=== PATIENT | female | born 1955 | race African-American/Black ===

== ENCOUNTER 2017-10-26 15:16 | Emergency (ER) | payer OTHER ==
[~2017-10-26] VITALS: Ht 162.6 cm; Wt 102.5 kg
[2017-10-26 16:18] LABS: HEMATOCRIT 43.2 % (37.0-47.0); HEMOGLOBIN 14.8 G/DL (12.0-16.0); MEAN CORPUSCULAR VOLUME 83 FL (80-99); PLATELET COUNT 173 K/UL (150-450); RED BLOOD COUNT 5.18 M/UL (4.20-5.40); RED CELL DISTRIBUTION WIDTH 12.7 % (11.6-14.8); WHITE BLOOD COUNT 10.3 K/UL (4.8-10.8)
[2017-10-26 16:21] LABS: ANION GAP 11 mmol/L (5-15); BLOOD UREA NITROGEN 18 mg/dL (7-18); CALCIUM 10.3 MG/DL (8.5-10.1); CARBON DIOXIDE 26 MMOL/L (21-32); CHLORIDE 102 MMOL/L (98-107); POTASSIUM 4.7 MMOL/L (3.5-5.1); SODIUM 139 MMOL/L (136-145)
[2017-10-26 16:32] LABS: ALANINE AMINOTRANSFERASE 37 U/L (12-78); ALBUMIN 4.1 G/DL (3.4-5.0); ALBUMIN/GLOBULIN RATIO 0.9 (1.0-2.7); ALKALINE PHOSPHATASE 84 U/L (46-116); ASPARTATE AMINO TRANSFERASE 45 U/L (15-37); BILIRUBIN,TOTAL 1.1 MG/DL (0.2-1.0)
[2017-10-26 16:49] LABS: APPEARANCE,URINE CLEAR; BILIRUBIN, URINE NEGATIVE (NEGATIVE); COLOR,URINE PALE YELLOW; GLUCOSE, URINE (UA) NEGATIVE (NEGATIVE); KETONES,URINE NEGATIVE (NEGATIVE); LEUKOCYTE ESTERASE ,URINE NEGATIVE (NEGATIVE); NITRITE,URINE NEGATIVE (NEGATIVE); PH,URINE 7 (4.5-8.0); PROTEIN,URINE 3+ (NEGATIVE); UROBILINOGEN,URINE NORMAL MG/DL (0.0-1.0)
[2017-10-26 16:50] LABS: BILIRUBIN,DIRECT 0.1 MG/DL (0.0-0.3)
--- NOTE | 2017-10-26 16:53 | Diagnostic Imaging Report ---
EXAM: XR Chest, 1 View CLINICAL HISTORY: ABD PAIN TECHNIQUE: Frontal view of the chest. COMPARISON: No relevant prior studies available. FINDINGS: Lungs: No consolidation. Pleural space: Unremarkable. No pneumothorax. Heart: Cardiomegaly. Mediastinum: Unremarkable. Bones/joints: No acute fracture. IMPRESSION: No consolidation.
[2017-10-26 17:00] VITALS: BP 177/92
[2017-10-26] MEDS ORDERED: ONDANSETRON ODT4 MG BC (17:26)
[2017-10-26] MEDS ORDERED: RANITIDINE HCL150 MG ORAL (17:26)
[2017-10-26] MEDS ORDERED: DICYCLOMINE HCL10 MG PO (17:26)
[2017-10-26] MEDS ORDERED: Pantoprazole Inj IVP ONE (17:30)
[2017-10-26 17:40] VITALS: BP 157/92
--- NOTE | 2017-10-26 18:36 | Emergency Room Report ---
History of Present Illness General Chief Complaint: Chest Pain Source: Patient Present Illness HPI 62-year-old F presents ED complaining of chest pain. States that pain started earlier today while at rest. Burning, 4 out of 10, nonradiating. Patient points to her epigastric region. States she has history of gastritis. Also complaining of diarrhea. Denies any shortness of breath. No other aggravating relieving factors. Denies any other associated symptoms Allergies: Coded Allergies: IBUPROFEN (Verified Allergy, Unknown, 10/26/17) Patient History Past Medical History: HTN, GERD Past Surgical History: none Pertinent Family History: none Social History: Denies: smoking, alcohol use, drug use Now: No Immunizations: UTD Reviewed Nursing Documentation: PMH: Agreed; PSxH: Agreed Nursing Documentation-PMH Hx Cardiac Problems: Yes - enlarged heart Hx Hypertension: Yes Review of Systems All Other Systems: negative except mentioned in HPI Physical Exam Vital Signs Date Time Temp Pulse Resp B/P (MAP) Pulse Ox O2 Delivery O2 Flow Rate FiO2 10/26/17 15:23 98.3 90 18 163/100 96 Room Air 98.2 Sp02 EP Interpretation: reviewed, normal General Appearance: no apparent distress, alert, GCS 15, non-toxic Head: normocephalic, atraumatic Eyes: bilateral eye normal inspection, bilateral eye PERRL ENT: hearing grossly normal, normal pharynx, no angioedema, normal voice Neck: full range of motion, supple/symm/no masses Respiratory: chest non-tender, lungs clear, normal breath sounds, speaking full sentences Cardiovascular #1: regular rate, rhythm, no edema Cardiovascular #2: 2+ carotid (R), 2+ carotid (L), 2+ radial (R), 2+ radial (L) , 2+ dorsalis pedis (R), 2+ dorsalis pedis (L) Gastrointestinal: normal bowel sounds, soft, non-distended, no guarding, no rebound, tenderness - epigastric Rectal: deferred Genitourinary: normal inspection, no CVA tenderness Musculoskeletal: back normal, gait/station normal, normal range of motion, non- tender Neurologic: alert, oriented x3, responsive, motor strength/tone normal, sensory intact, speech normal Psychiatric: judgement/insight normal, memory normal, mood/affect normal, no suicidal/homicidal ideation Reflexes: 3+ bicep (R), 3+ bicep (L), 3+ tricep (R), 3+ tricep (L), 3+ knee (R) , 3+ knee (L) Skin: normal color, no rash, warm/dry, well hydrated Lymphatic: no adenopathy Medical Decision Making Diagnostic Impression: Primary Impression: Epigastric pain ER Course Hospital Course 62-year-old F presents to ED with epigastric pain with vomiting, diarrhea differential diagnosis: gastritis, SBO, cholecystits Clinical course Patient placed on stretcher. On functional architect. After initial history and physical I ordered labs, IV fluids, Zofran and pepcid, ekg, cxr Labs - no leukocytosis, no electrolyte abnormalities, LFTs normal, trop 0.00 EKG - NSR, no acute ischemic changes interpreted by me CXR - no acute process Pain was epigastric. However given patient's age and risk factors I believe a cardiac workup was required. Clinically patient states exam consistent with gastritis. Symptoms improving after Pepcid and Zofran I feel this is a highly complex case requiring extensive working including EKG/ Rhythm strip, Xray/CT/US, Blood/urine lab work, repeat exams while in ED, and administration of strong opiates/narcotics for pain control, admission to hospital or close patient follow up. Diagnosis - epigastric pain Stable and discharged to home with prescriptions for Zantac, zofran. Followup with PMD. Return to ED if symptoms recur or worsen Labs Test 10/26/17 15:55 10/26/17 16:25 White Blood Count 10.3 K/UL (4.8-10.8) Red Blood Count 5.18 M/UL (4.20-5.40) Hemoglobin 14.8 G/DL (12.0-16.0) Hematocrit 43.2 % (37.0-47.0) Mean Corpuscular Volume 83 FL (80-99) Mean Corpuscular Hemoglobin 28.5 PG (27.0-31.0) Mean Corpuscular Hemoglobin Concent 34.2 G/DL (32.0-36.0) Red Cell Distribution Width 12.7 % (11.6-14.8) Platelet Count 173 K/UL (150-450) Mean Platelet Volume 7.8 FL (6.5-10.1) Neutrophils (%) (Auto) % (45.0-75.0) Lymphocytes (%) (Auto) % (20.0-45.0) Monocytes (%) (Auto) % (1.0-10.0) Eosinophils (%) (Auto) % (0.0-3.0) Basophils (%) (Auto) % (0.0-2.0) Differential Total Cells Counted 100 Neutrophils % (Manual) 73 % (45-75) Lymphocytes % (Manual) 17 % (20-45) Monocytes % (Manual) 4 % (1-10) Eosinophils % (Manual) 0 % (0-3) Basophils % (Manual) 1 % (0-2) Band Neutrophils 5 % (0-8) Platelet Estimate Adequate Platelet Morphology Normal Red Blood Cell Morphology Normal Sodium Level 139 MMOL/L (136-145) Potassium Level 4.7 MMOL/L (3.5-5.1) Chloride Level 102 MMOL/L (98-107) Carbon Dioxide Level 26 MMOL/L (21-32) Anion Gap 11 mmol/L (5-15) Blood Urea Nitrogen 18 mg/dL (7-18) Creatinine 1.0 MG/DL (0.55-1.30) Estimat Glomerular Filtration Rate 55.8 mL/min (>60) Glucose Level 137 MG/DL (74-106) Calcium Level 10.3 MG/DL (8.5-10.1) Total Bilirubin 1.1 MG/DL (0.2-1.0) Direct Bilirubin 0.1 MG/DL (0.0-0.3) Aspartate Amino Transf (AST/SGOT) 45 U/L (15-37) Alanine Aminotransferase (ALT/SGPT) 37 U/L (12-78) Alkaline Phosphatase 84 U/L (46-116) Troponin I 0.000 ng/mL (0.000-0.056) Total Protein 8.8 G/DL (6.4-8.2) Albumin 4.1 G/DL (3.4-5.0) Globulin 4.7 g/dL Albumin/Globulin Ratio 0.9 (1.0-2.7) Lipase 84 U/L (73-393) Urine Color Pale yellow Urine Appearance Clear Urine pH 7 (4.5-8.0) Urine Specific [place] 1.010 (1.005-1.035) Urine Protein 3+ (NEGATIVE) Urine Glucose (UA) Negative (NEGATIVE) Urine Ketones Negative (NEGATIVE) Urine Occult Blood 3+ (NEGATIVE) Urine Nitrite Negative (NEGATIVE) Urine Bilirubin Negative (NEGATIVE) Urine Urobilinogen Normal MG/DL (0.0-1.0) Urine Leukocyte Esterase Negative (NEGATIVE) Urine RBC 2-4 /HPF (0 - 2) Urine WBC 0-2 /HPF (0 - 2) Urine Squamous Epithelial Cells Few /LPF (NONE/OCC) Urine Amorphous Sediment Few /LPF (NONE) Urine Bacteria Few /HPF (NONE) EKG Diagnostic Results Rate: normal Rhythm: NSR ST Segments: no acute changes ASA given to the pt in ED: No Rhythm Strip Diag. Results EP Interpretation: yes Rhythm: NSR, no ectopy, other - PVCs Chest X-Ray Diagnostic Results Chest X-Ray Diagnostic Results : Chest X-Ray Ordered: Yes # of Views/Limited/Complete: 1 View Indication: Chest Pain EP Interpretation: Yes Interpretation: no consolidation, no effusion, no pneumothorax, no acute cardiopulmonary disease Impression: No acute disease Electronically Signed by: Electronically signed by Travis Amor MD Last Vital Signs Date Time Temp Pulse Resp B/P (MAP) Pulse Ox O2 Delivery O2 Flow Rate FiO2 10/26/17 17:40 98.1 84 20 157/92 99 Room Air 98.2 Status: improved Disposition: HOME, SELF-CARE Condition: Stable Scripts Ondansetron Odt* (ZOFRAN ODT*) 4 Mg Tab.rapdis 4 MG BC EVERY 6 HOURS PRN for Nausea & Vomiting, #30 TAB 0 Refills Prov: Travis Amor MD 10/26/17 Dicyclomine Hcl* (DICYCLOMINE HCL*) 10 Mg Capsule 10 MG PO QID, #20 CAP Prov: Travis Amor MD 10/26/17 Ranitidine Hcl* (ZANTAC*) 150 Mg Tablet 150 MG ORAL TWICE A DAY, #30 TAB Prov: Travis Amor MD 10/26/17 Patient Instructions: Gastritis, Adult, [id number] Travis Amor MD Oct 26, 2017 18:36
== END 2017-10-26 17:40 | disposition home or self-care (01) ==
LOC: EMR 16:00
DX: R10.13 Epigastric pain (principal); R07.9 Chest pain, unspecified; I10 Essential (primary) hypertension; K21.9 Gastro-esophageal reflux disease without esophagitis; Z88.6 Allergy status to analgesic agent
CPT/HCPCS: 36415; 71045; 80053; 81003; 82248; 83690; 84484; 85007; 85025; 96374; 96375; 99284; C9113; J2405; S0028

== ENCOUNTER 2020-02-12 21:19 | Emergency (ER) | payer OTHER ==
[~2020-02-12] VITALS: Ht 162.6 cm; Wt 110.2 kg
[~2020-02-12 21:19] MED LIST: DICYCLOMINE HCL10 MG PO; ONDANSETRON ODT4 MG BC; RANITIDINE HCL150 MG ORAL
[2020-02-12 21:49] VITALS: BP 132/74
--- NOTE | 2020-02-12 22:09 | Emergency Room Report ---
History of Present Illness General Chief Complaint: General Complaint Present Illness HPI Patient is a 64-year-old female who presented after increased bleeding from surgical site. Patient had right-sided mastectomy performed at [facility] earlier today. She had noticed increased blood from surgical site with some drainage to the bandages. patient had surgery earlier in the day. Denies feeling dizzy or lightheaded. She states that she had rolled onto her right side while sleeping and subsequent noticed bleeding. Allergies: Coded Allergies: IBUPROFEN (Verified Allergy, Unknown, 10/26/17) COVID-19 Screening Contact w/high risk pt: No Experienced COVID-19 symptoms?: No COVID-19 Testing performed BATTERY CONTAINER TESTER ALUMINUM: Yes - 02/07/20 COVID-19 Screening: Negative COVID-19 COVID-19 Testing Source: [facility] Patient History Reviewed Nursing Documentation: PMH: Agreed; PSxH: Agreed Nursing Documentation-PMH Hx Cardiac Problems: Yes - enlarged heart, masectomy right breast Hx Hypertension: Yes Review of Systems All Other Systems: negative except mentioned in HPI Physical Exam Vital Signs Date Time Temp Pulse Resp B/P (MAP) Pulse Ox O2 Delivery O2 Flow Rate FiO2 02/12/20 21:29 98.8 68 19 132/74 (93) 100 Room Air General Appearance: well appearing, no apparent distress, alert, GCS 15, obese, Chronically Ill Head: normocephalic, atraumatic ENT: hearing grossly normal, normal voice Neck: full range of motion, supple Respiratory: lungs clear, no respiratory distress, speaking full sentences Gastrointestinal: normal inspection Musculoskeletal: no calf tenderness Neurologic: alert, motor strength/tone normal, portable power tool repairer III-XII nml as tested, oriented x3, normal gait Psychiatric: mood/affect normal Skin: no rash, other - Right mastectomy with [address] with small amount of bloody drainage to dressings. Minimal bleeding Medical Decision Making Diagnostic Impression: Primary Impression: Visit for wound check ER Course Patient presented for right breast surgery site bleeding. Differential diagnosis include was not limited to drain malfunction, wound dehiscence, local trauma, stitch rupture among others. Patient has a benign exam and does not appear to require any imaging or laboratory testing at this time. Patient was n oted to have some bleeding to the right breast area from her mastectomy site. There does not appear to be any evidence of infection. Surgical site appears to be intact. Drains are still in place. Patient was unaware of how to manage the drains and patient's drains were noted to have no vacuum present. Dressing was changed with sterile technique and patient was dressed with dressing similar to previously. Drains remain in place at the time of discharge. Patient was advised to follow-up with her surgeon. Does not appear to require laboratory testing as bleeding does not appear to be significant at this time. This medical record is generated with [employer] machine tool technology instructor software. There may be some machine tool technology instructor discrepancies related to use of this software Last Vital Signs Date Time Temp Pulse Resp B/P (MAP) Pulse Ox O2 Delivery O2 Flow Rate FiO2 02/12/20 21:49 68 19 Room Air 02/12/20 21:49 132/74 100 02/12/20 21:29 98.8 Status: improved Disposition: HOME, SELF-CARE Condition: Stable Referrals: NOT CHOSEN LATISHA/,REFERRING (PCP) Leroy Lopez MD Feb 12, 2020 22:09
[2020-02-12 22:30] VITALS: BP 132/74
== END 2020-02-12 22:30 | disposition home or self-care (01) ==
LOC: EMR 21:49
DX: Z48.01 Encounter for change or removal of surgical wound dressing (principal); I10 Essential (primary) hypertension; I51.7 Cardiomegaly; Z90.11 Acquired absence of right breast and nipple; Z88.6 Allergy status to analgesic agent
CPT/HCPCS: 99281